=== PATIENT | female | born 1955 | race Caucasian/White ===

== ENCOUNTER 2022-01-25 14:30 | Outpatient (RCR) | payer MEDICARE, BC, SELFPAY ==
--- NOTE | 2021-11-16 12:34 | URNOTE ---
Received request for prior auth for [employer] ([id number]). Per [facility]'s Medical Injectable drug Authorization list, prior authorization is not required.
--- NOTE | 2021-12-16 17:58 | PT.OPEX ---
PT [facility] PT [facility] Outpatient Eval Start: 12/16/21 15:00 Freq: Status: Active Protocol: Document 12/16/21 15:01 ANI (Rec: 12/16/21 17:54 ANI [id number]) E-signed By Armando Fraire PT Physical Therapy Outpatient Evaluation Insurance Information Insurance Name Medicare B,Blue Cross/Blue Shield Medical Diagnosis Left shoulder pain Treating Diagnosis Decreased left shoulder mobility Left scapular and cuff weakness Subjective Subjective Pt. reports having left shoulder pain for about 2 years with some type of incident at that time. She has been limited in her ROM with limitations and difficulty with certain lifting and arm motions which she has compensated for. She is hoping to regain her motion and be able to lift overhead without difficulty again. She can sleep ok but she can't do pushups, bent press or forward lifting overhead. PMH includes right shoulder pain, right knee pain, OA changes in joints, and allergies. Pain Comments 04/01 Date of Last Physician Visit 10/14/21 Current Work Status Retired Preferred Name Alise Objective Range of Motion Moderated limitations in left shoulder flexion, abduction with mild ER and IR limitations. Strength scapular stabilizer weakness cuff weakness and deconditioning Swelling none Palpation left bicep pain Posture rounded shoulders Other/Pertinent Objective capsular restrictions left shoulder Assessment Assessment/Impression Objectively, pt. demonstrates; 125 deg of active left shoulder flexion versus 155 deg on right with pain and excessive left upper trap activation; limited abduction AROM on left; mild loss left shoulder IR and ER with some pain noted; pain with palpation to left bicep tendon ; hypomobility of left GHJ with capsular restrictions noted; and scapular and cuff weakness/deconditioning. She would benefit from skilled therapy working on progressive mobility and strength program . Primary Functional Limitations lifting overhead; pushing; push ups; reaching Plan of Care Rehabilitation Potential Excellent Physical Therapy Goals 1. Pt. will be indep. with HEP for self maintenance in 8 weeks. 2. Pt. will demonstrate improved shoulder ROM to WNL in 8-12 weeks. 3. Pt. will be able to raise arm overhead for ADL's without difficulty in 8-12 weeks. Coordination/Communication With Referral Source Treatment Plan/Direct Interventions Joint Mobilization,Manual Therapy,Self-Care/Home Management,Therapeutic Activities,Therapeutic Exercises Frequency/Duration 6 visits over 12 weeks. Patient Will Be Discharged From Therapy Independent w/HEP, Independently Progressing Evaluation Billing Complexity Moderate Certification Information Initial Certification Date 12/16/21 Ending Certification Date 03/10/22 Provider Signature Shows Agreement With POC & Medical Necessity Physician Signature & Date Requested Please Sign/Date Here Physician Comment/Change : Physician NPI Number #
== END 2022-03-25 14:29 | disposition home or self-care (01) ==
PROVIDERS: PCP Internal Medicine; Visit Provider Internal Medicine
DX: M25.512 Pain in left shoulder (principal); Z51.89 Encounter for other specified aftercare
CPT/HCPCS: 97110; 97140; 97162

== ENCOUNTER 2022-03-10 08:06 | Outpatient (CLI) | payer MEDICARE, BC, SELFPAY ==
--- NOTE | 2022-03-10 08:15 | MR_ITS ---
[address] [address] Phone:?[phone] Fax:?[phone] Referring Physician Information: Anthony Grijalva M.D. [address] [facility] [address] Phone:?[phone] Fax:?[phone] Patient:Michael Martinez D.O.B:?1955 Sex:?Female Phone:?[phone] [facility] MRN:?[id number] Exam Date:?03/10/2022 ? EXAM: MRI of the LEFT SHOULDER, without contrast CLINICAL INFORMATION: Female, 67 years old, with left shoulder pain. INDICATION: Evaluate for rotator cuff tear. PRIOR SURGERY: None reported. PLAIN FILMS: Shoulder radiographs dated 03/02/2022. COMPARISONS: No prior MRIs available. TECHNICAL INFORMATION: Using a 1.5T MR scanner and a localizing surface coil: coronal obliques: PD, T2, STIR sagittal obliques: PD, T2 axials: PD, T2 SEDATION: None CONTRAST: None FINDINGS: Bones: Proximal humerus: No fracture or marrow edema/pathology. No humeral Hill-Sachs or reverse Hill-Sachs lesion/impaction or contusion. Glenoid: No fracture or marrow edema/pathology. No osseous Bankart lesion. Rotator cuff and muscles/tendons: Supraspinatus: Marked supraspinatus tendinopathy and thickening, without tendon tear or muscle atrophy. Infraspinatus: Mild infraspinatus tendinopathy, without tendon tear or muscle atrophy. Teres minor: No tendinopathy, tear or atrophy. Subscapularis: No tendinopathy, tear or atrophy. Deltoid: No strain or atrophy. Coracoacromial arch: Acromion morphology: The acromion has type II morphology. No discrete subacromial osseous spur or os acromiale. Acromiohumeral space: The acromiohumeral space measures 5.4 mm at its narrowest point (osseous distance). Coracohumeral space: The coracohumeral space is within normal limits. Acromioclavicular joint: Joint: Mild AC joint arthropathy, without significant inferior osteophytosis or evidence of supraspinatus impingement. Ligaments: Coracoclavicular ligaments are intact. Bursae: Subacromial-subdeltoid: Mild subacromial-subdeltoid bursitis. Subcoracoid: No convincing subcoracoid bursal thickening/bursitis. Biceps tendon: The long head of the biceps tendon is present within the bicipital groove. Mild tendinopathy of the intra-articular biceps long head tendon, without split/tear. Glenohumeral joint: Effusion/cyst: Mild glenohumeral joint effusion. Articular cartilage: Humeral head: Moderate-marked generalized thinning of the humeral head articular cartilage, with mild inferomedial marginal osteophytosis. Glenoid: Moderate generalized thinning of the glenoid articular cartilage, with mild posterior greater than anterior marginal osteophytosis. Loose bodies: No discrete intra-articular body within the joint. Labrum:?Circumferential degeneration and fraying of the labrum, which is of doubtful clinical significance. Inferior glenohumeral ligament/axillary pouch:?Intact. The axillary pouch is normal in thickness and signal. No evidence of adhesive capsulitis or capsular injury. IMPRESSION: 1. Marked supraspinatus and mild infraspinatus tendinopathy. No rotator cuff tendon tear. 2. Moderate osteoarthritis of the glenohumeral joint with a small joint effusion. 3. Mild tendinopathy of the intra-articular biceps long head tendon, without split/tear. 4. Mild narrowing of the acromiohumeral space with mild subacromial-subdeltoid bursitis. While there is mild AC joint arthropathy, there is no evidence of impingement at the AC joint. 5. Circumferential degeneration and fraying of the labrum, which is of doubtful clinical significance. BC Electronically signed on 03/10/2022 11:21:00 AM by Jace Lao M.D.
== END 2022-03-10 08:07 | disposition home or self-care (01) ==
LOC: MRI 08:07
PROVIDERS: PCP Internal Medicine; Visit Provider Orthopaedic Surgery
DX: M25.512 Pain in left shoulder (principal); M19.012 Primary osteoarthritis, left shoulder; M75.52 Bursitis of left shoulder; M25.412 Effusion, left shoulder
CPT/HCPCS: 73221

== ENCOUNTER 2023-01-03 08:55 | Outpatient (CLI) | payer MEDICARE, BC, SELFPAY ==
--- NOTE | 2023-01-03 09:15 | CRLHL7_ITS ---
For Patients: As a result of the Century Cures Act, medical imaging exams and procedure reports are released immediately into your electronic medical record. You may view this report before your referring provider. If you have questions, please contact your health care provider. BILATERAL SCREENING MAMMOGRAM WITH COMPUTER-AIDED DETECTION TECHNIQUE: CC and MLO views were obtained. These mammographic images have been obtained using full-field digital technique. These mammographic images were interpreted with the benefit of computer-aided detection. COMPARISON FILM: 06/23/21, 04/09/18, 04/06/16. FINDINGS: There are scattered areas of fibroglandular density IMPRESSION: There is no radiographic evidence for malignancy. ASSESSMENT: BI-RADS Category 1: Negative RECOMMENDATION: Routine screening mammogram in 1 year. A lay language report of this examination will be provided to the patient. Josh Muro M.D. Diagnostic Radiologist [email or web address] DARLYN/Dictated by: Josh Muro MD @ 01/03/2023 9:37:00 AM (Electronically Signed)
== END 2023-01-03 08:56 | disposition home or self-care (01) ==
LOC: MAMMO 08:56
PROVIDERS: PCP Internal Medicine; Visit Provider Internal Medicine
DX: Z12.31 Encounter for screening mammogram for malignant neoplasm of breast (principal)
CPT/HCPCS: 77067

== ENCOUNTER 2023-06-26 08:14 | Outpatient (CLI) | payer MEDICARE, BC, SELFPAY ==
--- OUTSIDE RECORDS SUMMARY | 2023-06-26 08:25 | XMS_ITS | Clinical Summary ---
Author Name Unknown Organization [facility] Address [place], [place] [address] Care Team Providers Care Assistant Portfolio Manager Name Role Phone Pcp, No Primary Care Provider Unavailabl e Allergies No known active allergies Medications Medication Sig Dispensed Refills Start Date End Date Status ibuprofen (ADVIL; MOTRIN) 200 mg tablet Take 200 mg by mouth 4 times daily if needed. Active ibuprofen (ADVIL; MOTRIN) 600 mg tablet Take 1 tablet by mouth 4 times daily if needed. Maximum of 3200 mg in 24 hours. 30 tablet 0 02/16/2010 Active Immunizations Name Administration Dates Next Due Td (Age >=7 Years) 01/03/2007 Social History Tobacco Use Types Packs/Day Years Used Date Smoking Tobacco: Never Smokeless Tobacco: Never Alcohol Use Standard Drinks/Week Comments Yes 0 (1 standard drink = 0.6 oz pur e alcohol) Sex and Gender Information Value Date Recorded Sex Assigned at Not on file Gender Identity Not on file Sexual Orientation Not on file Obstetrics History Last Filed Vital Signs Vital Sign Reading Time Taken Comments Blood Pressure 111/73 02/16/2010 12:54 PM MANAGER WORKERS COMPENSATION Pulse 112 02/16/2010 12:38 PM MANAGER WORKERS COMPENSATION Temperature 36.9 ??C (98.4 ??F) 02/16/2010 8:28 AM CS T Respiratory Rate 20 02/16/2010 8:28 AM MANAGER WORKERS COMPENSATION Oxygen Saturation 100% 02/16/2010 12:54 PM MANAGER WORKERS COMPENSATION Inhaled Oxygen Concentration - - Weight 59 kg (130 lb) 02/16/2010 8:28 AM MANAGER WORKERS COMPENSATION Height 157.5 cm (5' 2) 02/16/2010 8:28 AM MANAGER WORKERS COMPENSATION Body Mass Index 23.78 02/16/2010 8:28 AM MANAGER WORKERS COMPENSATION Plan of Treatment Health Maintenance Due Date Last Done Comments Tdap 1965 Depression screening for age 12+ 1966 BMI (ht and wt on same day) for age 18+ 01/09/1972 Hepatitis C screening for age 18-79 01/09/1972 Colonoscopy through age 75 1999 Lipids for age 45-75 1999 Mammogram for age 45-75 1999 Zoster (shingles) series for age 50+ (1 of 2) 01/09/20 04 Tetanus booster 01/03/2017 01/03/2007 DEXA/DXA scan for age 65+ 2019 Pneumococcal series for age 65+ (1 of 1 - PCV) 019 COVID-19 vaccine series ( - 2022-24 season) 3 Influenza for age 65+ 10/22/2023 Care Teams Assistant Portfolio Manager Relationship Specialty Start Date End Date Pcp, No . PCP - General 02/11/10
== END 2023-06-26 08:15 | disposition home or self-care (01) ==
LOC: NFLDREF 08:23
PROVIDERS: PCP Internal Medicine; Visit Provider Internal Medicine
DX: M85.80 Other specified disorders of bone density and structure, unspecified site (principal)
CPT/HCPCS: 82306

== ENCOUNTER 2023-11-27 18:04 | Outpatient (CLI) | payer MEDICARE, BC, SELFPAY ==
--- OUTSIDE RECORDS SUMMARY | 2023-11-27 18:06 | XMS_ITS | Clinical Summary ---
Author Organization [email or web address] Address [place], [place] [address] Care Team Providers Care Financial Services Sales Representative Name Role Phone Pcp, No Primary Care [...] Comments Blood Pressure 111/73 02/16/2010 12:54 PM LIBRARY CIRCULATION CLERK Pulse 112 02/16/2010 12:38 PM LIBRARY CIRCULATION CLERK Temperature 36.9 ??C (98.4 ??F) 02/16/2010 8:28 AM CS T Respiratory Rate 20 02/16/2010 8:28 AM LIBRARY CIRCULATION CLERK Oxygen Saturation 100% 02/16/2010 12:54 PM LIBRARY CIRCULATION CLERK Inhaled Oxygen Concentration - - Weight 59 kg (130 lb) 02/16/2010 8:28 AM LIBRARY CIRCULATION CLERK Height 157.5 cm (5' 2) 02/16/2010 8:28 AM LIBRARY CIRCULATION CLERK Body Mass Index 23.78 02/16/2010 8:28 AM LIBRARY CIRCULATION CLERK Plan of Treatment Health Maintenance Due Date [...] PCV) 019 COVID-19 vaccine series ( - 2023- season) 4 Influenza for age 65+ 10/22/2023 Care Teams Financial Services Sales Representative Relationship Specialty Start Date End Date Pcp, No . PCP - General 02/11/10
--- NOTE | 2023-11-27 18:15 | MR_ITS ---
[address] [address] Phone:?[phone] Fax:?[phone] Referring Physician Information: Prema Bailey [address] [facility] [address] Phone:?[phone] Fax:?[phone] Patient:Michael Martinez D.O.B:?1955 Sex:?Female Phone:?[phone] [facility] MRN:?[id number] Exam Date:?11/27/2023 EXAM: MRI of the LEFT KNEE, without contrast CLINICAL HISTORY: Ongoing left knee pain and swelling. Synovial cyst popliteal space. COMPARISONS: Plain radiographs 09/27/2023. TECHNICAL: MR sequences of the left knee: sagittals: PD, PDFS coronals: PD, T2FS axials: PD, PDFS CONTRAST: None SEDATION: None FINDINGS: Bones: There is a 1.3 x 1.3 cm nondisplaced fracture of the proximal medial tibia at and just proximal to the level of the physeal scar. Patellofemoral joint: Cartilage: There is diffuse grade II and III chondromalacia over the median patellar ridge and medial patellar facet. Retinacula: The medial and lateral retinacula are intact. Fat pads: The infrapatellar, quadriceps, and prefemoral fat pads are unremarkable. Knee joint: Effusion: Large left knee joint effusion. Popliteal cyst: Large perforated popliteal cyst. Intra-articular bodies: None. Posteromedial corner: Unremarkable. Medial compartment: Medial meniscus: There is full-thickness radial tear through the posterior horn of the medial meniscus. There is 4 mm of medial meniscal extrusion. Cartilage: There is extensive grade III chondromalacia over most of the weightbearing portion of the medial femoral condyle. Lateral compartment: Lateral meniscus: Intact. Cartilage: Intact. Ligaments: Anterior cruciate ligament: Intact. Posterior cruciate ligament: Intact. Medial collateral ligament: Intact. Posterior oblique ligament: Intact. Fibular collateral ligament: Intact. Posterolateral corner: The distal biceps femoris tendon, iliotibial band, popliteus tendon, popliteus muscle, popliteofibular ligament, and arcuate ligament are intact. Extensor mechanism: Patellar tendon: Intact. Quadriceps tendon: Intact. IMPRESSION: 1. 1.3 x 1.3 cm nondisplaced fracture of the proximal medial tibia at and just proximal to the level of the physeal scar. 2. Full-thickness radial tear through the posterior horn of the medial meniscus. 4 mm of medial meniscal extrusion. 3. Extensive grade III chondromalacia over most of the weightbearing portion of the medial femoral condyle. 4. Diffuse grade II and III chondromalacia over the median patellar ridge and medial patellar facet. 5. Large left knee joint effusion. Large perforated popliteal cyst. 6. No ligamentous injury or lateral meniscal tear of the left knee. RCB Electronically signed on 11/28/2023 8:45:00 AM by Leandro Franks M.D.
== END 2023-11-27 18:05 | disposition home or self-care (01) ==
PROVIDERS: PCP Internal Medicine; Visit Provider Physician Assistant
DX: M25.562 Pain in left knee (principal); S82.135A Nondisplaced fracture of medial condyle of left tibia, initial encounter for closed fracture; S83.242A Other tear of medial meniscus, current injury, left knee, initial encounter; M94.262 Chondromalacia, left knee; M25.462 Effusion, left knee; M17.12 Unilateral primary osteoarthritis, left knee; M71.22 Synovial cyst of popliteal space [Baker], left knee
CPT/HCPCS: 73721

== ENCOUNTER 2024-04-25 13:31 | Outpatient (CLI) | payer MEDICARE, BC, SELFPAY | END 2024-04-25 13:32 | disposition home or self-care (01) | LOC: MAMMO 13:31 | PROVIDERS: PCP Internal Medicine; Visit Provider Internal Medicine | DX: Z12.31 Encounter for screening mammogram for malignant neoplasm of breast (principal) | CPT/HCPCS: 77063; 77067 ==

== ENCOUNTER 2024-05-23 08:36 | Day surgery (SDC) | payer MEDICARE, BC, SELFPAY ==
[2024-05-23] VITALS (15 sets, daily range): BP systolic 92–131; BP diastolic 50–117; PULSE 46–76; RESP 8–20; TEMP 36.1–36.9; O2SAT 95–100; BMI 22.4
[2024-05-23] MEDS: LACTATED RINGERS 1000 ML 1,000 ML 100 ML IV ×2 (09:35→12:57)
[2024-05-23] MEDS: OXYCODONE (CR) 10 MG TAB.ER.12H PO (09:45)
[2024-05-23] MEDS: ACETAMINOPHEN 500 MG TABLET 1000 MG PO (09:45)
[2024-05-23] MEDS: CELECOXIB 200 MG CAPSULE PO (09:45)
[2024-05-23] MEDS: CEFAZOLIN 2 GM in 0.9 % SODIUM CHLORIDE Mini-bag 100 ML IVPB (11:44)
--- NOTE | 2024-05-23 12:32 | PM.ORPN ---
Ortho Exam Const Vital Signs, click to edit/add: Vital Signs - 24 hr 05/23/24 08:54 Temperature 98.2 F Pulse Rate 76 Respiratory Rate 20 Blood Pressure 122/71 Pulse Oximetry 100 Oxygen Delivery Method Room Air
--- NOTE | 2024-05-23 12:33 | P.ORPRC_ITS ---
Procedure Note Date of procedure: 05/23/24 Procedure: PREOPERATIVE DIAGNOSIS: Left knee medial meniscus root tear POSTOPERATIVE DIAGNOSIS: Left knee medial meniscus root tear NAME OF OPERATION: Left knee arthroscopic medial meniscus root repair, microfracture of the notch SURGEON: Anthony Grijalva MD CERTIFIED PROSTHETIST/ORTHOTIST: JARRELL Wallace ANESTHESIA: Spinal ESTIMATED BLOOD LOSS: 0 mL COMPLICATIONS: None SPECIMENS: None DRAINS: None PREOPERATIVE ANTIBIOTICS: Ancef 1 gram INDICATIONS: The patient is a 69-year-old female with a history of left knee medial pain. MRI scan is consistent with a medial meniscus root tear. Despite appropriate nonoperative management, including activity modification, antiinflammatories, [id number] pain medication, bracing, physical therapy, and injections they continue to have pain and disability. Operative intervention was offered. The risks, benefits and expected outcomes were discussed in detail. These included but were not limited to: Infection, bleeding, injury to blood vessel or nerve, venous thromboembolism. All questions were answered to their satisfaction. PROCEDURE: Spinal anesthesia was administered. The patient was placed supine on the operating room table. The left lower extremity was prepped and draped in the usual sterile fashion. The limb was exsanguinated with the Veto bandage. The pneumatic tourniquet was inflated to 300 mmHg. A standard anterolateral portal was established. The arthroscope was introduced. The working portal was established anteromedially. Diagnostic arthroscopy was performed with findings as follows: The suprapatellar pouch is normal. Articular surface on the patella shows diffuse grade 1/2 change. Articular surface on the trochlea diffuse grade 1/2 change. The medial gutter is normal. The medial compartment shows diffuse grade 2/3 change on the medial femoral condyle, diffuse grade 1/2 change on the medial tibial plateau. The medial meniscus has a radial tear of the posterior horn from the leading edge to the capsule (root tear). The notch shows the ACL to be intact. The lateral compartment shows normal articular cartilage on the lateral femoral condyle and lateral tibial plateau. The lateral meniscus is normal. The lateral gutter is normal. Unstable chondral flaps on the medial femoral condyle, lateral tibial plateau, femoral trochlea and patella were debrided with the shaver through both portals, taken to a stable base. The knee scorpion was used to pass a fiber link x 2 in the posterior horn of the medial meniscus. The tibial drill guide was used over the footprint of the root. A longitudinal incision over the anteromedial face of the tibia was placed. The flip cutter was drilled into the footprint. The flip cutter was flipped and back cut 10 mm. It was removed and exchanged for a fiber stick. The fiber stick was brought out the anteromedial portal and was used to shuttle both of the fiber link luggage tag sutures on the posterior horn out the anteromedial tibia. We then tensioned the sutures and fixed them to the tibia with a SwiveLock anchor. This provided an excellent repair of the posterior tibial attachment of the medial meniscus to its anatomic footprint. The power pick was used to microfracture the notch both medially and laterally. Arthroscopic instruments were removed, the portal sites were Steri-Stripped closed, the incision over the tibia was closed with 3-0 Vicryl and 4-0 Monocryl. A dry dressing was applied, the tourniquet was released. Sponge and needle counts were correct x 2. The patient tolerated the procedure well. There were no apparent complications. They were carefully transferred to the hospital bed and taken to the postanesthesia care unit in satisfactory condition. PLAN: The patient will be discharged to home. They will be careful with weight-bearing on the lower extremity for the next 6 weeks. No planting, pivoting or twisting. Range of motion will be allowed from 0-90 degrees x 2 weeks then unrestricted range of motion. They will follow up in 2 weeks for a wound check.
--- NOTE | 2024-05-23 12:56 | P.ANES_ITS ---
Anesthesia Charges Start Date/Time Anesthesia Start Date: 05/23/24 Anesthesia Start Time: 11:22 Stop Date/Time Anesthesia Stop Date: 05/23/24 Anesthesia Stop Time: 12:47 Summary Extremes of Age - Over 70 or under 1: MANAGER BUSINESS OPERATIONS Coding CPT Codes CPT Codes: ANESTH KNEE JOINT SURGERY - 64719 ([id number]) P2 - PATIENT W/MILD SYST DISEASE, QZ - MANAGER BUSINESS OPERATIONS SVC W/O SUPERVISOR WARPING DEPARTMENT BY Additional Codes: Summary - Extremes of Age - Over 70 or under 1: MANAGER BUSINESS OPERATIONS ([id number])
--- NOTE | 2024-05-23 12:56 | W.ANESCHARGE ---
Anesthesia Charges Start Date/Time Anesthesia Start Date: 05/23/24 Anesthesia Start Time: 11:22 Stop Date/Time Anesthesia Stop Date: 05/23/24 Anesthesia Stop Time: 12:47 Summary Extremes of Age - Over 70 or under 1: WHANAU SUPPORT WORKER Coding CPT Codes CPT Codes: ANESTH KNEE JOINT SURGERY - 38872 ([id number]) P2 - PATIENT W/MILD SYST DISEASE, QZ - WHANAU SUPPORT WORKER SVC W/O NEUROLOGY MANAGER BY Additional Codes: Summary - Extremes of Age - Over 70 or under 1: WHANAU SUPPORT WORKER ([id number])
[2024-05-23] MEDS: fentaNYL 100 MCG/2 ML inj 50 MCG IVP (13:09)
--- NOTE | 2024-05-23 14:01 | W.PM.NB ---
Nerve Block Nerve Block Time Seen by Provider: 12:40 Date Seen: 05/23/24 Type of block requested by surgeon for post-operative analgesia: geniculars Side: left Time out performed: Yes Verification of patient name: Yes Verification of date of : Yes Site marking: site marked Name of person performing procedure: Matt White Continuous monitoring Was continuous monitoring of O2 sat, B/P, traffic monitor specialist, recorded every 15 minutes?: Yes Procedure Checklist: sterile prep, needles and gloves Ultrasound guided. Images saved: No Medications given in 5ml increments after negative aspiration: Ropivicaine %: 0.5 mL: 12 Needle gauge: 25 Patient tolerated procedure well: Yes Additional comments: Injected in 4ml increments after negative aspiration Block Charges Block Charge (with Pro Fee): Genicular Nerve Block Use of Ultrasound Machine for Block: No
[2024-05-23] MEDS: ONDANSETRON 2 MG/ML inj 4 MG IVP (14:09)
== END 2024-05-23 16:20 | disposition home or self-care (01) ==
PROVIDERS: PCP Internal Medicine; Visit Provider Orthopaedic Surgery
PROC: (CPT 29882; principal; 2024-05-23 12:30)
DX: S83.242A Other tear of medial meniscus, current injury, left knee, initial encounter (principal); G89.18 Other acute postprocedural pain
CPT/HCPCS: 29882; 29879; 01400; 64454; 99100; A9270; C1713; J0690; J2405; J2704; J2795; J3010; J3490; J7120

== ENCOUNTER 2024-08-13 10:00 | Outpatient (RCR) | payer MEDICARE, BC, SELFPAY ==
--- NOTE | 2024-05-30 09:39 | PT.OPEX ---
PT [place] Outpatient Eval PT [facility] Outpatient Eval Start: 05/30/24 09:11 Freq: Status: Active Protocol: Document 05/30/24 09:11 NIDIA (Rec: 05/30/24 09:34 [id number]) E-signed By Radha Young DPT Physical Therapy Outpatient Evaluation Insurance Information Recert Due Date 08/28/24 Insurance Name Medicare B,[employer] Medical Diagnosis s/p L knee arthroscopic medial meniscus root repair, microfracture of notch 05/23/24 Treating Diagnosis s/p L knee arthroscopic medial meniscus root repair, microfracture of notch 05/23/24 wit L knee pain, impaired L knee ROM (limited 0-90 ROM x 2 weeks), impaired L knee/LE mobility/strength, impaired gait currently restricted to toe touch/careful WB using cructhes x 6 weeks, limited tolerance for extended standing/walking, interrupted sleep. Subjective Subjective Patient reports onset of L knee pain issues last spring/ summer. She denies any falls, injury, trauma but states her activities were limited by pain which lead to MD appt, MRI, and eventually L knee surgery last week, 05/23/24. She reports using a velcro knee brace some prior to surgery and she is wearing it again now after surgery. Patient states the knee brace feels good, supportive so she likes to use it. She was not placed in a brace after surgery and can go without it but is choosing to use it. She is amb with crutches with some pressure on her L LE. Patient states that she isn't supposed to walk on L LE but MD told her that would be too difficult so it was ok for her to put her foot down on the floor with the use of crutches but she is trying to now put much pressure on her foot. Patient to use crutches x 6 weeks. She had follow up with BE Gonzales yesterday and referred to PT. Patient reports follow up went well. She is using ibuprofen 2x/day for pain. Icing 1-2x/day. Sleep is interrupted. She reports using a pillow under her knee when laying down. Pain range 1-5/10. Patient states she hasn't been doing any exercises yet. BE instructed her to do leg lifts yesterday so she did a few of those yesterday. Date of Last Physician Visit 05/29/24 Date of Surgery (If applicable) 05/23/24 Precautions Treatment Precautions/Contraindications per MD surgical note: careful with WB on LE x 6 weeks and no planting, pivoting, or twisting. ROM 0-90 degrees x 2 weeks, then unrestricted ROM . Weight Bearing Status Toe Touch Weight Bearing Assessment Assessment/Impression Patient is a 69 year old female s/p L knee arthroscopic medial meniscus root repair, microfracture of notch 05/23/24 wit L knee pain, impaired L knee ROM (limited 0-90 ROM x 2 weeks), impaired L knee/LE mobility/strength, impaired gait currently restricted to toe touch/careful WB using cructhes x 6 weeks, limited tolerance for extended standing/walking, interrupted sleep. Pain range 1-5/10. Patient is wearing velcro knee brace on L knee. She is using crutches with TTWB for ambulation. Reviewed PA note and MD surgical note which states careful with WB on LE x 6 weeks, no planting/ pivoting/twisting, ROM 0-90 degrees x 2 weeks and then unrestricted ROM. Patient is lacking full ext. States she has been using a pillow under her knee at home. Instructed patient to not use pillow under her knee, work on full ext. She expressed understanding. L knee ROM 0-8 -93 degrees. Able to initiate exercises this session and issued HO for HEP. Tolerated well. Reviewed not pushing flexion ROM as she is getting to 90 degrees quite easily at this time. Patient to focus on ext ROM, quad activation. PA issued leg lift exercise yesterday, reviewed this session. Reviewed current restrictions/precautions. Patient expressed understanding. She would benefit from skilled PT for pain/sx management, improved L knee ROM, improved L knee/LE mobility/strength, progression of WB, gait/balance/ proprioception training, and establishment of HEP. Plan of Care Rehabilitation Potential Good Physical Therapy Goals 1. Decrease L knee pain to less than/equal to 3/10 with daily activities and with the progression of PT activities over the next 4-6 weeks. 2. Improve L knee ROM to 0- 120 degrees or greater over the next 8-10 weeks for return to functional knee ROM and improved gait mechanics. 3. Improve L knee/LE mobility /strength over the next 10-12 weeks for return to transfers with ease, progression of WB, weaning out of the knee brace, improved gait and progression back to amb without an AD, and for return to extended standing/walking for ADLs/ household activities per PLF. 4. Patient will be I with HEP within 12 weeks for progression toward above goals, ongoing self-management of pain/swelling, ongoing self improvements in L knee ROM/strength, return to normal gait without AD, and return to PLF with daily/ household/leisure activities. Coordination/Communication With Referral Source Treatment Plan/Direct Interventions Gait Training,Manual Therapy, Therapeutic Exercises Frequency/Duration 1-2x/week Patient Will Be Discharged From Therapy Completion of LTG(s),Skills Plateau,Independent w/HEP, Independently Progressing Evaluation Billing Untimed Code Treatment Minutes 26 Complexity Moderate Certification Information Initial Certification Date 05/30/24 Ending Certification Date 08/28/24 Provider Signature Required Yes Provider Signature Shows Agreement With POC & Medical Necessity Physician NPI Number Write NPI# Here Physician Comment/Change : Physician Signature & Date Requested Please Sign/Date Here
== END 2024-08-13 14:26 | disposition home or self-care (01) ==
PROVIDERS: PCP Internal Medicine; Visit Provider Physician Assistant
DX: S83.242D Other tear of medial meniscus, current injury, left knee, subsequent encounter (principal); Z51.89 Encounter for other specified aftercare
CPT/HCPCS: 97110; 97112; 97116; 97140; 97162